=== PATIENT | male | born 1995 | race Caucasian/White ===

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

== ENCOUNTER 2017-08-06 23:02 | Emergency (ER) | payer OTHER ==
[2017-08-06] MEDS ORDERED: LORAZEPAM INJ 2 MG/1 ML VIAL IV ONE ×2 (23:07→23:32)
[2017-08-06] MEDS ORDERED: LEVETIRACETAM 1000 MG/NACL-ISO 1,000 MG/100 ML RTUPB IV ONE (23:07)
[2017-08-06] MEDS ORDERED: LORAZEPAM INJ 2 MG/1 ML VIAL ONE (23:09)
--- NOTE | 2017-08-06 23:14 | ER Document Report ---
ED General - General Stated Complaint: POSSIBLE SEIZURE Time Seen by Provider: 08/06/17 23:07 Notes: Patient is a 22-year-old male who presents with complaint of seizure-like activity. Paramedics have given us the history. told paramedics the patient had a headache all day. Tonight he starts seizing in bed. He has no previous history of seizures. Paramedics given 5 mg of Versed. He currently is awake with his eyes open however is not responding to any commands. He keeps his elbows in the flexed position. No report of recent illness or fevers. Axillary temperature the paramedics was 99. No further history obtainable at this time. TRAVEL OUTSIDE OF THE [place] IN LAST 30 DAYS: No - Related Data Allergies/Adverse Reactions: No Known Allergies Allergy (Unverified 08/06/17 23:31) Past Medical History - Social History Smoking Status: Unknown if Ever Smoked Frequency of alcohol use: unknown Drug Abuse: Other - unknown Family History: Other - unknown Renal/ Medical History: Denies: Hx Peritoneal Dialysis Past Surgical History: Reports: Hx Appendectomy Review of Systems - Review of Systems -: Yes ROS unobtainable due to patient's medical condition - Patient can not communicate Physical Exam - Vital signs Vitals: Resp Pulse Ox 30 H 100 08/06/17 23:07 08/06/17 23:07 - Notes Notes: General Appearance: Patient has eyes open but unable to communicate and staring forward. Does not follow commands. Vitals: reviewed, See vital signs table. Head: no swelling or tenderness to the head Eyes: PERRL, EOMI, Conjuctiva clear Mouth: No decreasd moisture Neck: Supple Lungs: No wheezing, No rales, No rhonci, No accessory muscle use, good air exchange bilaterally. Heart: Normal rate, Regular rythm, No murmur, no rub Abdomen: Normal BS, soft, No rigidity, No abdominal tenderness, No guarding, no rebound, no abdominal masses, no organomegaly Extremities: strength 5/5 in all extremities, good pulses in all extremities, no swelling or tenderness in the extremities, no edema. Skin: warm, dry, appropriate color, no rash Neuro: Patient is lying there with eyes open but will not respond to commands. Patient is lying flat on the bed with his elbows in a flexed position. I am able to be easily pushed his forearms down against the bed but then patient slowly raises his elbows back in a flexed position. Patient's right lower extremity has normal reflex. Patient's left foot goes into full dorsiflexion with outgoing extend the big toe when I touch the foot. Course - Re-evaluation Re-evalutation: 08/06/17 23:[address] head [address] because of the concern of his presentation with new onset seizures. CT scan in my review does not show any obvious abnormalities. I do not see obvious masses or bleeding. I wait to see if the patient's stress show any improvement. I am having nurses obtain temp now to make sure is no signs of fever. 08/06/17 23:32 is now in the room. 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 When he passed out he has some tremors but no history of actual true seizures. He does admit that he has had some stress recently because he is going to be deployed but she says that he has never had anything like this before. She says he has been deployed before and never had any type of stress reaction or anything like this. He has no history of psychiatric illness. The confirms that he has had a headache all day. She says she try to get him to come to the ER but he said that he was fine and did not want to come to the ER. She says that the headache started this morning. She said tonight he had a was sounds to be a full body tonic-clonic seizure in bed. That is when she called the paramedics and given Versed. Since receiving the Versed he has intermittent posturing. Currently he is back to having what appears to be seizure-like activity again where he is straightening out his arms but extending his wrist back and holding him in that position. Also his feet are now both fully flex at the ankle with the toes extended. I will give the patient another dose of Ativan 3 mg. If this does not stop what appears to be ongoing seizure activity than we will have to elect to potentially give him propofol and intubated. I did explain this to the patient's who is agreeable to this. 08/06/17 23:45 We did not have to give him the 3 mg of Ativan because he is now awake and starting to respond. I asked him if he still has a headache and he does put his hand towards the left side of his head. He is able to follow commands. He has symmetrical facial movement. Is good manager transfer strength bilaterally. He does not have any focal neurologic deficits on exam. He still cannot talk very well. He just nods his head yes or shakes his head no at this time. 08/06/17 23:59 EKG is reviewed and interpreted by me. EKG shows sinus tachycardia with a rate of [address] segment elevation. Minimal half a millimeter ST segment depression in leads V5 and V6. CO interval, QRS duration, QTc intervals are within normal range. No old EKG available for comparison. 08/07/17 00:50 Patient continues to be awake and alert but continues to not be able to talk. He still will nod his head yes or no. His symptoms could be psychiatric, but I do not feel true siezures can be ruled out without an EEG. I did speak with Dr. Pierre, neurologist [facility]. He says that he feels patient needs continuous EEG monitoring. He says he does not have a his facility and recommends I call other facilities. I did call [facility]. They are on diversion except for trauma and brain bleed. I also called [facility]. They are also on diversion. I then called [facility] and spoke with neurologist, Dr. Zach Singh. He agrees to accept the patient. She says there unfortunately is a wait list because they do not have available bed but they will place him on a wait list. I will try to call [facility] next. 08/07/17 00:53 08/07/17 01:22 I tried to call [facility]. I was on hold for over 30 minutes without ever getting to speak with a transfer center universal grinder operator. I then called [facility]. I spoke with Dr. Hickman. She was very kind and agreed to accept the patient. I reevaluate the patient again. He is currently resting comfortably without any signs of seizure activity. 08/07/17 02:29 Transport team is arrived. I have reassessed the patient. Patient is sleeping comfortably. I am able to wake him with gentle shaking. He will usually awaken and scratch his nose. He still will not answer questions. He then goes back to sleep. He does have purposeful voluntary movement. Patient does not have any signs of ongoing seizures at this time. Patient is stable for transfer. Dictation of this chart was performed using voice recognition software; therefore, there may be some unintended grammatical errors. - Vital Signs Vital signs: Temp Pulse Resp BP Pulse Ox 98.3 F 12 127/71 H 95 08/07/17 02:03 08/07/17 02:01 08/07/17 02:01 08/07/17 02:01 - Laboratory Result Diagrams: 08/06/17 22:49 08/06/17 22:49 Laboratory results interpreted by me: 08/06/17 08/06/17 22:49 22:49 MCHC 36.2 H Glucose 144 H Calcium 10.7 H Albumin 5.3 H Discharge - Discharge Clinical Impression: Seizure-like activity Condition: Stable Disposition: [facility]
[2017-08-06 23:21] LABS: ABSOLUTE BASOPHILS # (AUTO) 0.1 10^3/uL (0.0-0.2); ABSOLUTE EOSINOPHILS # (AUTO) 0.2 10^3/uL (0.0-0.6); ABSOLUTE MONOCYTES (AUTO) 0.6 10^3/uL (0.1-1.4); BASOPHILS % (AUTO) 0.5 % (0-2); EOSINOPHILS % (AUTO) 2.1 % (0-6); HEMATOCRIT 41.5 % (37.9-51.0); LYMPHOCYTES % (AUTO) 40.3 % (13-45); MEAN CORPUSCULAR HGB CONC 36.2 g/dL (32.0-36.0); MEAN CORPUSCULAR VOLUME 88 fl (80-97); MONOCYTES % (AUTO) 6.2 % (3-13); PLATELET COUNT 336 10^3/uL (150-450); RED CELL DISTRIBUTION WIDTH 12.3 % (11.5-14.0); SEGMENTED NEUTROPHILS % (AUTO) 50.9 % (42-78); TOTAL CELLS COUNTED % (AUTO) 100 %; WHITE BLOOD COUNT 9.8 10^3/uL (4.0-10.5)
--- NOTE | 2017-08-06 23:32 | RADIOLOGY REPORT (SQ) ---
EXAM DESCRIPTION: CT HEAD WITHOUT COMPLETED DATE/TIME: 08/06/2017 11:23 pm REASON FOR STUDY: seizure, headache COMPARISON: None. TECHNIQUE: Axial images acquired through the brain without intravenous contrast. Images reviewed wi th bone, brain and subdural windows. Images stored on PACS. All CT scanners at this facility use dose modulation, iterative reconstruction, and/or weight based d osing when appropriate to reduce radiation dose to as low as reasonably achievable (ALARA). [facility]: Dose Right [facility]: CareDose [facility]: Dose Right [facility]: Teradose 4D [facility]: [employer] RADIATION DOSE: CT Rad equipment meets quality standard of care and radiation dose reduction techniq ues were employed. CTDIvol: 64.6 mGy. DLP: 1163 mGy-cm. mGy. LIMITATIONS: None. FINDINGS: VENTRICLES: Normal size and contour. CEREBRUM: No masses. No hemorrhage. No midline shift. No evidence for acute infarction. Normal gra y/white matter differentiation. No areas of low density in the white matter. CEREBELLUM: No masses. No hemorrhage. No alteration of density. No evidence for acute infarction. EXTRAAXIAL SPACES: No fluid collections. No masses. ORBITS AND GLOBE: No intra- or extraconal masses. Normal contour of globe without masses. CALVARIUM: No fracture. PARANASAL SINUSES: No fluid or mucosal thickening. SOFT TISSUES: No mass or hematoma. OTHER: No other significant finding. IMPRESSION: No acute intracranial findings. EVIDENCE OF ACUTE STROKE: NO. COMMENT: Quality ID # [id number]: Final reports with documentation of one or more dose reduction techniques (e.g., Automated exposure control, adjustment of the mA and/or kV according to patient size, use of iterative reconstruction technique) TECHNICAL DOCUMENTATION: JOB ID: [id number] [place]-72 2010 [employer]- All Rights Reserved
[2017-08-06 23:36] LABS: ALANINE AMINOTRANSFERASE 29 U/L (21-72); ALBUMIN 5.3 g/dL (3.5-5.0); ALKALINE PHOSPHATASE 76 U/L (38-126); ANION GAP 15 (5-19); ASPARTATE AMINO TRANSFERASE 24 U/L (17-59); BILIRUBIN,DIRECT 0.2 mg/dL (0.0-0.4); BILIRUBIN,TOTAL 0.4 mg/dL (0.2-1.3); BLOOD UREA NITROGEN 14 mg/dL (7-20); CALCIUM 10.7 mg/dL (8.4-10.2); CARBON DIOXIDE 27 mmol/L (22-30); CHLORIDE 100 mmol/L (98-107); GLUCOSE 144 mg/dL (75-110); MAGNESIUM 1.6 mg/dL (1.6-2.3); POTASSIUM 3.9 mmol/L (3.6-5.0); SODIUM 141.9 mmol/L (137-145); TOTAL PROTEIN 7.8 g/dL (6.3-8.2)
[2017-08-06] MEDS ORDERED: ONDANSETRON HCL INJ/PF 4 MG/2 ML SDV IV ONE (23:55)
[2017-08-07 02:32] VITALS: BP 109/62
--- NOTE | 2017-08-07 09:16 | EKG REPORT ---
SEVERITY:- BORDERLINE ECG - SINUS TACHYCARDIA S1,S2,S3 PATTERN BORDERLINE T ABNORMALITIES, LATERAL LEADS : Confirmed by: Missy Evans 07-Aug-2017 09:15:51
== END 2017-08-07 02:38 | disposition short-term general hospital (02) ==
LOC: ER 23:02
DX: R29.818 Other symptoms and signs involving the nervous system (principal); R51 Headache; R00.0 Tachycardia, unspecified
CPT/HCPCS: 93005; 99285; 96374; 96375; 36415; 83735; 85025; 80053; 70450; 93010; J2405; J1953; J2060